=== PATIENT | female | born 1985 | race Caucasian/White ===

== ENCOUNTER 2025-05-11 03:56 | Emergency (ER) | payer OTHER, SELFPAY ==
[2025-05-11 03:59] VITALS: BP 115/86
[2025-05-11 05:28] VITALS: BMI 23.5
[2025-05-11 06:00] VITALS: BP 128/85
--- NOTE | 2025-05-11 07:17 | ED.GENMED ---
History of Present Illness
General
Chief Complaint: Anal/Rectal Problem
Source: patient
Exam Limitations: none
Time Seen by Provider: 05/11/25 06:07
Nursing documentation reviewed up to this point in time: agreed with
History of Present Illness
History of Present Illness:
Patient with history of external hemorrhoid for the for the past 1 year, with intermittent pain, status post colonoscopy 1 month ago, presents to ED secondary to worsening pain despite utilizing nxrc-dxw-qkswqil medications as well as sitz bath's at
home. Colonoscopy 1 month ago revealed internal and external hemorrhoid. At that time, patient was told that external hemorrhoids should be treated symptomatically and will get better on its own. Denies trauma. Denies fever. Denies vomiting.
Denies difficulty with bowel movements. Patient states that she is really healthy with good amount of fiber intake.
Review of Systems
Review of Systems
Allergies reviewed?: Yes
All Other Systems: ROS reviewed and negative except as documented in HPI and ROS
Constitutional: Reports no symptoms
ABD/GI: Reports other (Painful external hemorrhoid); Denies abdominal pain
Musculoskeletal: Reports no symptoms
Skin: Reports no symptoms
Neurological: Reports no symptoms
Phy Exam
Physical Exam
Physical Exam:
Physical Exam
General: mild painful distress, not acutely ill. afebrile
Head: nc/at. eomi
Neck: supple. no meningeal signs.
Abdomen: normal bowel sounds. not tender. Rectal exam ([facility], at bedside): external, nonthrombosed external hemorrhoid noted, painful to palpation.
Neuro: alert and oriented x 3. no focal neurological deficits
Skin: no rash
Psychiatric: well kept. interactive and cooperative
Extremities: no edema. no calf tenderness.
Course
Orders/Labs/Results
Orders:
Orders
05/11/25 07:22
Dibucaine [Nupercainal 1% Ointment] See Dose Instructions TOPICAL NOW STA
05/11/25 07:23
Ibuprofen [Motrin] 400 mg .ROUTE .STK-MED ONE
05/11/25 07:26
Ibuprofen [Motrin] 400 mg PO NOW STA
Vital Signs
Initial and Last Documented VS:
Initial Vital Signs
Temp Pulse Resp BP Pulse Ox
97.8 F 74 20 115/86 98
05/11/25 03:59 05/11/25 03:59 05/11/25 03:59 05/11/25 03:59 05/11/25 03:59
Last Documented Vital Signs
Temp Pulse Resp BP Pulse Ox
97.8 F 74 20 128/85 96
05/11/25 03:59 05/11/25 03:59 05/11/25 03:59 05/11/25 06:00 05/11/25 07:18
MDM/Problems Addressed
MDM/Problems Addressed:
History and exam consistent with painful, nonthrombosed, external hemorrhoid Patient will be provided with Dibucaine ointment, for symptomatic relief, along with recommendation to continue to utilize home regimen, including sitz bath and stool
softener. In addition, starting recommended consultation with colorectal surgeon for further evaluation and treatment.
*Pulse Oximetry
SaO2: 96
Oxygen Mode of Delivery: Room air
Patient hypoxic: no
*Critical Care Note
Total Time (30-74mins, 75-104mins- exclusive of procedures): Not Applicable
ED Attending Note
-
Portions of this chart may have been created with voice recognition software.� Occasional wrong word or��sound alike� substitutions may have occurred due to the inherent limitations of voice recognition software.
Discharge Plan
Departure
Patient Disposition: Home (Routine Discharge)
Date of Disposition: 05/11/25
Time of Disposition: 07:18
Patient with high blood pressure during this ER visit?: No
Condition: Fair
Discharge Problem:
External hemorrhoid
Instructions: Hemorrhoids (DC), How to Do a Sitz Bath
Prescriptions:
New
dibucaine [Hemorrhoidal-Analgesic] 1 % ointment
1 applic topical QID Qty: 30 0RF
Referrals:
Kade Ogden MD [Active, ColoRectal]
Irasema Moran MD [Family Provider, Family Practice]
Activity Restrictions/Additional Instructions:
As discussed, please follow-up with referred to colorectal surgeon for further evaluation and treatment.
Interventions
Interventions:
*Risk Screen - Suicide Last Done: 05/11/25 03:59
*General Assessment Last Done: 05/11/25 03:59
*Neglect/Abuse Screening Last Done: 05/11/25 03:59
*ED- Fall Risk Assessment Last Done: 05/11/25 03:59
*ED COVID-19 Vaccine History Last Done: 05/11/25 04:08
*ED Influenza Vaccine History Last Done: 05/11/25 04:08
*Nursing Disposition Last Done: 05/11/25 07:50
MW-Kckveu-Zihxkckotj Assessment Last Done: 05/11/25 05:25
ED-Skin Assessment Last Done: 05/11/25 05:25
Discharge Date and Time
Discharge Date/Time: 05/11/25 07:51
Print Language: ARABIC
[2025-05-11] MEDS: MOTRIN 400 MG PO (07:26)
[2025-05-11] MEDS: NUPERCAINAL 1% OINTMENT 1 APPLIC TOPICAL (07:42)
== END 2025-05-11 07:51 | disposition home or self-care (01) ==
LOC: EMR 03:56
PROVIDERS: EMERGENCY PHYSICIAN Emergency Medicine; FAMILY PHYSICIAN Family Medicine
DX: K64.4 Residual hemorrhoidal skin tags (principal)
CPT/HCPCS: 99283